=== PATIENT | male | born 1985 | race Caucasian/White ===

== ENCOUNTER 2020-09-14 21:29 | Inpatient (IN) | payer BC ==
[2020-09-14] MEDS ORDERED: MAGNESIUM CITRATE 300 ML BOTTLE PO PRN (23:56)
[2020-09-14] MEDS ORDERED: LOPERAMIDE HCL 2 MG CAPSULE PO PRN (23:56)
[2020-09-14] MEDS ORDERED: MAGNESIUM HYDROX 2400MG/30ML ORAL SUSPENSION 30 ML CUP PO PRN (23:56)
[2020-09-14] MEDS ORDERED: guaiFENesin 200 MG/10 ML 10 ML UNIT-DOSE CUPS PO PRN (23:56)
[2020-09-14] MEDS ORDERED: P-EPHED 60MG/TRIPROLIDI 2.5MG TABLET PO PRN (23:56)
[2020-09-14] MEDS ORDERED: MAG HYDROX/AL HYDROX/SIMETH 30 ML UNIT-DOSE CUP PO PRN (23:56)
[2020-09-14] MEDS ORDERED: ACETAMINOPHEN 325 MG TABLET (FP) PO PRN (23:56)
[2020-09-15] MEDS ORDERED: TUBERCULIN PPD 5 TU/0.1ML VIAL ID ONE (01:59)
[2020-09-15] MEDS: MELATONIN 5 MG TABLETS PO SCH ×2 (02:08→21:44)
[2020-09-15] MEDS ORDERED: GEODON 20 MG PO SCH (10:00)
[2020-09-15] MEDS: PRENATAL VITAMINS W/ FOLIC ACID TABLET (FP) PO SCH (10:07)
[2020-09-15] MEDS: hydrOXYzine PAMOATE 25 MG CAPSULE (FP) PO PRN (10:07)
[2020-09-15] MEDS: NICOTINE 14 MG/24 HOURS TOPICAL PATCH TD SCH (10:07)
[2020-09-15] MEDS: COLLOIDAL OATMEAL 1 BAR EACH TP PRN (10:08)
[2020-09-15 11:38] LABS: HEMATOCRIT 35.1 % (35.4-49); HEMOGLOBIN 11.6 GM/dL (11.7-16.9); MCH 27.9 pg (25.7-33.7); MCHC 33.1 g/dl (32.0-35.9); MEAN CELL VOLUME 84.5 fl (80-96); MEAN PLT VOLUME 7.8 fl (7.5-11.1); PLATELET COUNT 300 K/MM3 (134-434); RBC 4.16 M/mm3 (4.00-5.60); RDW 20.2 % (11.9-15.9); WHITE BLOOD COUNT 6.8 K/mm3 (4.0-10.0)
[2020-09-15 11:42] LABS: ALBUMIN 3.2 g/dl (3.4-5.0)
[2020-09-15 11:43] LABS: BLOOD UREA NITROGEN 10.9 mg/dL (7-18)
[2020-09-15 11:46] LABS: CREATININE 0.8 mg/dL (0.55-1.3)
[2020-09-15 11:47] LABS: BILIRUBIN,TOTAL 0.5 mg/dL (0.2-1); TOT PROT 7.5 g/dl (6.4-8.2)
[2020-09-15 11:52] VITALS: BMI 25.0
[2020-09-15 11:56] LABS: EPI CELLS 10 /uL (0-25.1); HYALINE CASTS 4 /uL (0-3.1); URINE APPEARANCE CLEAR; URINE BACTERIA 51 /uL (0-1359); URINE BILIRUBIN NEGATIVE (NEGATIVE); URINE COLOR YELLOW; URINE GLUCOSE (UA) NEGATIVE (NEGATIVE); URINE KETONE NEGATIVE (NEGATIVE); URINE LEUK ESTERASE NEGATIVE (NEGATIVE); URINE NITRITE NEGATIVE (NEGATIVE); URINE PROTEIN NEGATIVE (NEGATIVE); URINE RBC 253 /uL (0-23.9); URINE UROBILINOGEN 0.2 mg/dL (0.2-1.0); URINE WBC 23 /uL (0-25.8)
[2020-09-15] MEDS ORDERED: ESCITALOPRAM OXALATE 10 MG TABLET PO SCH (12:00)
[2020-09-15] MEDS: ESCITALOPRAM OXALATE 10 MG PO SCH (12:07)
[2020-09-15] MEDS ORDERED: PT OWN MED DRAWER 7, Y5N ONE (12:10)
[2020-09-15] MEDS ORDERED: TRIUMEQ PO SCH (13:30)
[2020-09-15] MEDS ORDERED: SODIUM CHLORIDE NASAL SPRAY 44 ML BOTTLE NS PRN (13:35)
[2020-09-15] MEDS: ABACAVIR/DOLUTEGRAVIR/LAMIVUDI (TRIUMEQ) TABLET -NF PO SCH (14:44)
[2020-09-15] MEDS: ZIPRASIDONE 20 MG PO SCH (21:42)
[2020-09-15] MEDS: THIAMINE HCL 100 MG TABLET (FP) PO SCH (21:44)
[2020-09-16] MEDS: ABACAVIR/DOLUTEGRAVIR/LAMIVUDI (TRIUMEQ) TABLET -NF PO SCH (07:45)
[2020-09-16] MEDS: ESCITALOPRAM OXALATE 10 MG PO SCH (10:37)
[2020-09-16] MEDS: FAMOTIDINE 20 MG TABLET PO SCH (10:37)
[2020-09-16] MEDS: ZIPRASIDONE 20 MG PO SCH (10:37)
[2020-09-16] MEDS: NICOTINE 14 MG/24 HOURS TOPICAL PATCH TD SCH (10:38)
[2020-09-16] MEDS: PRENATAL VITAMINS W/ FOLIC ACID TABLET (FP) PO SCH (10:38)
[2020-09-16] MEDS: ZIPRASIDONE 20 MG CAPSULE PO SCH (17:09)
[2020-09-16] MEDS: METHYLPHENIDATE HCL 5 MG TABLET PO SCH (17:09)
[2020-09-16] MEDS: NICOTINE POLACRILEX 2 MG GUM BC PRN ×2 (18:05→20:45)
[2020-09-16] MEDS: THIAMINE HCL 100 MG TABLET (FP) PO SCH (21:08)
[2020-09-16] MEDS: MELATONIN 5 MG TABLETS PO SCH (21:08)
[2020-09-17] MEDS: METHYLPHENIDATE HCL 5 MG TABLET PO SCH ×2 (08:17→16:43)
[2020-09-17] MEDS: ZIPRASIDONE 20 MG CAPSULE PO SCH ×2 (08:17→16:44)
[2020-09-17] MEDS: ABACAVIR/DOLUTEGRAVIR/LAMIVUDI (TRIUMEQ) TABLET -NF PO SCH (08:18)
[2020-09-17] MEDS: FAMOTIDINE 20 MG TABLET PO SCH (10:26)
[2020-09-17] MEDS: ESCITALOPRAM OXALATE 10 MG PO SCH (10:26)
[2020-09-17] MEDS: NICOTINE 14 MG/24 HOURS TOPICAL PATCH TD SCH (10:26)
[2020-09-17] MEDS: PRENATAL VITAMINS W/ FOLIC ACID TABLET (FP) PO SCH (10:27)
[2020-09-17] MEDS: NICOTINE POLACRILEX 4 MG GUM BUC PRN (14:14)
[2020-09-17] MEDS: THIAMINE HCL 100 MG TABLET (FP) PO SCH (21:07)
[2020-09-17] MEDS: MELATONIN 5 MG TABLETS PO SCH (21:07)
[2020-09-18] MEDS: NICOTINE 14 MG/24 HOURS TOPICAL PATCH TD SCH (09:04)
[2020-09-18] MEDS: ZIPRASIDONE 20 MG CAPSULE PO SCH ×2 (09:05→17:06)
[2020-09-18] MEDS: ESCITALOPRAM OXALATE 10 MG PO SCH (09:05)
[2020-09-18] MEDS: FAMOTIDINE 20 MG TABLET PO SCH (09:05)
[2020-09-18] MEDS: METHYLPHENIDATE HCL 5 MG TABLET PO SCH ×2 (09:05→17:06)
[2020-09-18] MEDS: ABACAVIR/DOLUTEGRAVIR/LAMIVUDI (TRIUMEQ) TABLET -NF PO SCH ×2 (09:06)
[2020-09-18] MEDS: PRENATAL VITAMINS W/ FOLIC ACID TABLET (FP) PO SCH (09:06)
[2020-09-18] MEDS: NICOTINE POLACRILEX 4 MG GUM BUC PRN ×2 (09:07→19:18)
[2020-09-18] MEDS: THIAMINE HCL 100 MG TABLET (FP) PO SCH (21:10)
[2020-09-18] MEDS: MELATONIN 5 MG TABLETS PO SCH (21:10)
[2020-09-19] MEDS: METHYLPHENIDATE HCL 5 MG TABLET PO SCH ×2 (08:17→17:45)
[2020-09-19] MEDS: ZIPRASIDONE 20 MG CAPSULE PO SCH ×2 (08:17→17:46)
[2020-09-19] MEDS: ABACAVIR/DOLUTEGRAVIR/LAMIVUDI (TRIUMEQ) TABLET -NF PO SCH (08:17)
[2020-09-19] MEDS: NICOTINE POLACRILEX 4 MG GUM BUC PRN ×4 (08:24→17:56)
[2020-09-19] MEDS: ESCITALOPRAM OXALATE 10 MG PO SCH (10:14)
[2020-09-19] MEDS: PRENATAL VITAMINS W/ FOLIC ACID TABLET (FP) PO SCH (10:14)
[2020-09-19] MEDS: FAMOTIDINE 20 MG TABLET PO SCH (10:14)
[2020-09-19] MEDS: NICOTINE 14 MG/24 HOURS TOPICAL PATCH TD SCH (10:14)
[2020-09-19] MEDS: MELATONIN 5 MG TABLETS PO SCH (21:39)
[2020-09-19] MEDS: THIAMINE HCL 100 MG TABLET (FP) PO SCH (21:40)
[2020-09-20] MEDS: METHYLPHENIDATE HCL 5 MG TABLET PO SCH ×2 (07:37→16:51)
[2020-09-20] MEDS: COLLOIDAL OATMEAL 1 BAR EACH TP PRN (07:57)
[2020-09-20] MEDS: ABACAVIR/DOLUTEGRAVIR/LAMIVUDI (TRIUMEQ) TABLET -NF PO SCH (07:58)
[2020-09-20] MEDS: ZIPRASIDONE 20 MG CAPSULE PO SCH ×2 (07:58→16:52)
[2020-09-20] MEDS: NICOTINE POLACRILEX 4 MG GUM BUC PRN ×3 (08:52→15:49)
[2020-09-20] MEDS: NICOTINE 14 MG/24 HOURS TOPICAL PATCH TD SCH (10:27)
[2020-09-20] MEDS: ESCITALOPRAM OXALATE 10 MG PO SCH (10:27)
[2020-09-20] MEDS: PRENATAL VITAMINS W/ FOLIC ACID TABLET (FP) PO SCH (10:27)
[2020-09-20] MEDS: FAMOTIDINE 20 MG TABLET PO SCH (10:28)
[2020-09-20] MEDS: IBUPROFEN 400 MG TABLET (FP) PO PRN (17:38)
[2020-09-20] MEDS: THIAMINE HCL 100 MG TABLET (FP) PO SCH (21:10)
[2020-09-20] MEDS: MINERAL OIL/PETROLAT/WATER TOPICAL CREAM 113 GM JAR TP SCH (21:10)
[2020-09-20] MEDS: MELATONIN 5 MG TABLETS PO SCH (21:10)
[2020-09-21] MEDS: IBUPROFEN 400 MG TABLET (FP) PO PRN (06:10)
[2020-09-21] MEDS: NICOTINE POLACRILEX 4 MG GUM BUC PRN ×5 (06:10→17:43)
[2020-09-21] MEDS: ABACAVIR/DOLUTEGRAVIR/LAMIVUDI (TRIUMEQ) TABLET -NF PO SCH (07:38)
[2020-09-21] MEDS: METHYLPHENIDATE HCL 5 MG TABLET PO SCH ×2 (07:38→17:43)
[2020-09-21] MEDS: ZIPRASIDONE 20 MG CAPSULE PO SCH ×2 (07:38→17:43)
[2020-09-21] MEDS: NICOTINE 14 MG/24 HOURS TOPICAL PATCH TD SCH (10:25)
[2020-09-21] MEDS: PRENATAL VITAMINS W/ FOLIC ACID TABLET (FP) PO SCH (10:25)
[2020-09-21] MEDS: ESCITALOPRAM OXALATE 10 MG PO SCH (10:26)
[2020-09-21] MEDS: FAMOTIDINE 20 MG TABLET PO SCH (10:26)
[2020-09-21] MEDS: MINERAL OIL/PETROLAT/WATER TOPICAL CREAM 113 GM JAR TP SCH ×2 (10:28→21:47)
[2020-09-21] MEDS: BENZOCAINE 28 GM HEMORRHOIDAL OINTMENT RC PRN ×2 (11:58→18:59)
[2020-09-21] MEDS: THIAMINE HCL 100 MG TABLET (FP) PO SCH (21:47)
[2020-09-21] MEDS: MELATONIN 5 MG TABLETS PO SCH (21:47)
[2020-09-22] MEDS: NICOTINE POLACRILEX 4 MG GUM BUC PRN ×4 (06:33→17:43)
[2020-09-22] MEDS: METHYLPHENIDATE HCL 5 MG TABLET PO SCH ×2 (07:05→17:42)
[2020-09-22] MEDS: COLLOIDAL OATMEAL 1 BAR EACH TP PRN (07:10)
[2020-09-22] MEDS: ABACAVIR/DOLUTEGRAVIR/LAMIVUDI (TRIUMEQ) TABLET -NF PO SCH (07:41)
[2020-09-22] MEDS: ZIPRASIDONE 20 MG CAPSULE PO SCH ×2 (07:41→17:42)
[2020-09-22] MEDS: PRENATAL VITAMINS W/ FOLIC ACID TABLET (FP) PO SCH (10:19)
[2020-09-22] MEDS: FAMOTIDINE 20 MG TABLET PO SCH (10:19)
[2020-09-22] MEDS: MINERAL OIL/PETROLAT/WATER TOPICAL CREAM 113 GM JAR TP SCH ×2 (10:19→21:05)
[2020-09-22] MEDS: ESCITALOPRAM OXALATE 10 MG PO SCH (10:20)
[2020-09-22] MEDS: NICOTINE 14 MG/24 HOURS TOPICAL PATCH TD SCH (10:20)
[2020-09-22] MEDS: BENZOCAINE 28 GM HEMORRHOIDAL OINTMENT RC PRN (20:54)
[2020-09-22] MEDS: MELATONIN 5 MG TABLETS PO SCH (21:05)
[2020-09-22] MEDS: THIAMINE HCL 100 MG TABLET (FP) PO SCH (21:05)
[2020-09-23] MEDS: NICOTINE POLACRILEX 4 MG GUM BUC PRN ×5 (06:41→21:35)
[2020-09-23] MEDS: METHYLPHENIDATE HCL 5 MG TABLET PO SCH ×2 (07:02→17:44)
[2020-09-23] MEDS: ABACAVIR/DOLUTEGRAVIR/LAMIVUDI (TRIUMEQ) TABLET -NF PO SCH (08:05)
[2020-09-23] MEDS: ZIPRASIDONE 20 MG CAPSULE PO SCH ×2 (08:05→17:44)
[2020-09-23] MEDS: IBUPROFEN 400 MG TABLET (FP) PO PRN (08:45)
[2020-09-23] MEDS: PRENATAL VITAMINS W/ FOLIC ACID TABLET (FP) PO SCH (10:15)
[2020-09-23] MEDS: ESCITALOPRAM OXALATE 10 MG PO SCH (10:15)
[2020-09-23] MEDS: MINERAL OIL/PETROLAT/WATER TOPICAL CREAM 113 GM JAR TP SCH ×2 (10:15→21:36)
[2020-09-23] MEDS: NICOTINE 14 MG/24 HOURS TOPICAL PATCH TD SCH (10:15)
[2020-09-23] MEDS: hydrOXYzine PAMOATE 25 MG CAPSULE (FP) PO PRN ×2 (10:15→21:35)
[2020-09-23] MEDS: FAMOTIDINE 20 MG TABLET PO SCH (10:16)
[2020-09-23] MEDS: THIAMINE HCL 100 MG TABLET (FP) PO SCH (21:34)
[2020-09-23] MEDS: MELATONIN 5 MG TABLETS PO SCH (21:34)
[2020-09-23] MEDS: BENZOCAINE 28 GM HEMORRHOIDAL OINTMENT RC PRN (21:35)
[2020-09-24] MEDS: NICOTINE POLACRILEX 4 MG GUM BUC PRN ×4 (06:46→18:04)
[2020-09-24] MEDS: METHYLPHENIDATE HCL 5 MG TABLET PO SCH ×2 (07:50→18:02)
[2020-09-24] MEDS: ABACAVIR/DOLUTEGRAVIR/LAMIVUDI (TRIUMEQ) TABLET -NF PO SCH (07:50)
[2020-09-24] MEDS: ZIPRASIDONE 20 MG CAPSULE PO SCH ×2 (07:50→18:03)
[2020-09-24] MEDS: NICOTINE 14 MG/24 HOURS TOPICAL PATCH TD SCH (10:44)
[2020-09-24] MEDS: PRENATAL VITAMINS W/ FOLIC ACID TABLET (FP) PO SCH (10:44)
[2020-09-24] MEDS: ESCITALOPRAM OXALATE 10 MG PO SCH (10:44)
[2020-09-24] MEDS: FAMOTIDINE 20 MG TABLET PO SCH (10:44)
[2020-09-24] MEDS: MINERAL OIL/PETROLAT/WATER TOPICAL CREAM 113 GM JAR TP SCH ×2 (10:46→21:10)
[2020-09-24] MEDS: BENZOCAINE 28 GM HEMORRHOIDAL OINTMENT RC PRN (18:02)
[2020-09-24] MEDS: hydrOXYzine PAMOATE 25 MG CAPSULE (FP) PO PRN (21:12)
[2020-09-24] MEDS: THIAMINE HCL 100 MG TABLET (FP) PO SCH (21:12)
[2020-09-24] MEDS: MELATONIN 5 MG TABLETS PO SCH (21:12)
[2020-09-25] MEDS: COLLOIDAL OATMEAL 1 BAR EACH TP PRN (07:28)
[2020-09-25] MEDS: METHYLPHENIDATE HCL 5 MG TABLET PO SCH ×2 (07:28→17:48)
[2020-09-25] MEDS: ZIPRASIDONE 20 MG CAPSULE PO SCH ×2 (08:18→17:49)
[2020-09-25] MEDS: BENZOCAINE 28 GM HEMORRHOIDAL OINTMENT RC PRN (08:19)
[2020-09-25] MEDS: ABACAVIR/DOLUTEGRAVIR/LAMIVUDI (TRIUMEQ) TABLET -NF PO SCH (08:20)
[2020-09-25] MEDS: ESCITALOPRAM OXALATE 10 MG PO SCH (10:19)
[2020-09-25] MEDS: PRENATAL VITAMINS W/ FOLIC ACID TABLET (FP) PO SCH (10:19)
[2020-09-25] MEDS: MINERAL OIL/PETROLAT/WATER TOPICAL CREAM 113 GM JAR TP SCH ×2 (10:20→21:38)
[2020-09-25] MEDS: NICOTINE POLACRILEX 4 MG GUM BUC PRN ×5 (10:21→21:38)
[2020-09-25] MEDS: NICOTINE 14 MG/24 HOURS TOPICAL PATCH TD SCH (10:21)
[2020-09-25] MEDS: FAMOTIDINE 20 MG TABLET PO SCH (10:59)
[2020-09-25] MEDS: THIAMINE HCL 100 MG TABLET (FP) PO SCH (21:37)
[2020-09-25] MEDS: hydrOXYzine PAMOATE 25 MG CAPSULE (FP) PO PRN (21:37)
[2020-09-25] MEDS: MELATONIN 5 MG TABLETS PO SCH (21:37)
[2020-09-26] MEDS: METHYLPHENIDATE HCL 5 MG TABLET PO SCH ×2 (08:26→17:51)
[2020-09-26] MEDS: NICOTINE POLACRILEX 4 MG GUM BUC PRN ×5 (08:27→21:10)
[2020-09-26] MEDS: ABACAVIR/DOLUTEGRAVIR/LAMIVUDI (TRIUMEQ) TABLET -NF PO SCH (08:28)
[2020-09-26] MEDS: ZIPRASIDONE 20 MG CAPSULE PO SCH ×2 (08:28→17:51)
[2020-09-26] MEDS: PRENATAL VITAMINS W/ FOLIC ACID TABLET (FP) PO SCH (10:31)
[2020-09-26] MEDS: NICOTINE 14 MG/24 HOURS TOPICAL PATCH TD SCH (10:32)
[2020-09-26] MEDS: MINERAL OIL/PETROLAT/WATER TOPICAL CREAM 113 GM JAR TP SCH ×2 (10:34→21:10)
[2020-09-26] MEDS: ESCITALOPRAM OXALATE 10 MG PO SCH (10:34)
[2020-09-26] MEDS: FAMOTIDINE 20 MG TABLET PO SCH (10:41)
[2020-09-26] MEDS: IBUPROFEN 400 MG TABLET (FP) PO PRN (17:51)
[2020-09-26] MEDS: MELATONIN 5 MG TABLETS PO SCH (21:08)
[2020-09-26] MEDS: hydrOXYzine PAMOATE 25 MG CAPSULE (FP) PO PRN (21:08)
[2020-09-26] MEDS: THIAMINE HCL 100 MG TABLET (FP) PO SCH (21:08)
[2020-09-27] MEDS: IBUPROFEN 400 MG TABLET (FP) PO PRN (06:33)
[2020-09-27] MEDS: NICOTINE POLACRILEX 4 MG GUM BUC PRN ×5 (06:37→21:19)
[2020-09-27] MEDS: METHYLPHENIDATE HCL 5 MG TABLET PO SCH ×2 (07:56→17:31)
[2020-09-27] MEDS: ABACAVIR/DOLUTEGRAVIR/LAMIVUDI (TRIUMEQ) TABLET -NF PO SCH (07:56)
[2020-09-27] MEDS: ZIPRASIDONE 20 MG CAPSULE PO SCH ×2 (07:56→17:31)
[2020-09-27] MEDS: PRENATAL VITAMINS W/ FOLIC ACID TABLET (FP) PO SCH (10:34)
[2020-09-27] MEDS: MINERAL OIL/PETROLAT/WATER TOPICAL CREAM 113 GM JAR TP SCH ×2 (10:35→21:19)
[2020-09-27] MEDS: NICOTINE 14 MG/24 HOURS TOPICAL PATCH TD SCH (10:35)
[2020-09-27] MEDS: ESCITALOPRAM OXALATE 10 MG PO SCH (10:35)
[2020-09-27] MEDS: FAMOTIDINE 20 MG TABLET PO SCH (10:35)
[2020-09-27] MEDS: THIAMINE HCL 100 MG TABLET (FP) PO SCH (21:18)
[2020-09-27] MEDS: MELATONIN 5 MG TABLETS PO SCH (21:18)
[2020-09-27] MEDS: hydrOXYzine PAMOATE 25 MG CAPSULE (FP) PO PRN (21:18)
[2020-09-28] MEDS ORDERED: PT OWN MED DRAWER 7, Y5N ONE (06:49)
[2020-09-28] MEDS: METHYLPHENIDATE HCL 5 MG TABLET PO SCH ×2 (07:53→17:27)
[2020-09-28] MEDS: ABACAVIR/DOLUTEGRAVIR/LAMIVUDI (TRIUMEQ) TABLET -NF PO SCH (07:53)
[2020-09-28] MEDS: ZIPRASIDONE 20 MG CAPSULE PO SCH ×2 (07:53→17:28)
[2020-09-28] MEDS: ESCITALOPRAM OXALATE 10 MG PO SCH (09:58)
[2020-09-28] MEDS: PRENATAL VITAMINS W/ FOLIC ACID TABLET (FP) PO SCH (09:58)
[2020-09-28] MEDS: FAMOTIDINE 20 MG TABLET PO SCH (09:58)
[2020-09-28] MEDS: MINERAL OIL/PETROLAT/WATER TOPICAL CREAM 113 GM JAR TP SCH ×2 (09:58→21:26)
[2020-09-28] MEDS: NICOTINE 14 MG/24 HOURS TOPICAL PATCH TD SCH (09:58)
[2020-09-28] MEDS: NICOTINE POLACRILEX 4 MG GUM BUC PRN ×5 (10:00→21:26)
[2020-09-28] MEDS: COLLOIDAL OATMEAL 1 BAR EACH TP PRN (16:39)
[2020-09-28] MEDS: IBUPROFEN 400 MG TABLET (FP) PO PRN (17:28)
[2020-09-28] MEDS: MELATONIN 5 MG TABLETS PO SCH (21:26)
[2020-09-28] MEDS: THIAMINE HCL 100 MG TABLET (FP) PO SCH (21:26)
[2020-09-28] MEDS: hydrOXYzine PAMOATE 25 MG CAPSULE (FP) PO PRN (21:26)
[2020-09-29] MEDS: NICOTINE POLACRILEX 4 MG GUM BUC PRN ×5 (06:16→20:16)
[2020-09-29] MEDS: IBUPROFEN 400 MG TABLET (FP) PO PRN ×3 (06:16→21:29)
[2020-09-29] MEDS: METHYLPHENIDATE HCL 5 MG TABLET PO SCH ×2 (07:59→17:37)
[2020-09-29] MEDS: ZIPRASIDONE 20 MG CAPSULE PO SCH ×2 (08:00→17:38)
[2020-09-29] MEDS: ABACAVIR/DOLUTEGRAVIR/LAMIVUDI (TRIUMEQ) TABLET -NF PO SCH (08:00)
[2020-09-29] MEDS: MINERAL OIL/PETROLAT/WATER TOPICAL CREAM 113 GM JAR TP SCH ×2 (10:20→21:59)
[2020-09-29] MEDS: NICOTINE 14 MG/24 HOURS TOPICAL PATCH TD SCH (10:20)
[2020-09-29] MEDS: PRENATAL VITAMINS W/ FOLIC ACID TABLET (FP) PO SCH (10:20)
[2020-09-29] MEDS: FAMOTIDINE 20 MG TABLET PO SCH (10:20)
[2020-09-29] MEDS: ESCITALOPRAM OXALATE 10 MG TABLET PO SCH (10:21)
[2020-09-29] MEDS: hydrOXYzine PAMOATE 25 MG CAPSULE (FP) PO PRN (21:28)
[2020-09-29] MEDS: MELATONIN 5 MG TABLETS PO SCH (21:28)
[2020-09-29] MEDS: THIAMINE HCL 100 MG TABLET (FP) PO SCH (21:28)
[2020-09-30] MEDS: OFLOXACIN 0.3% OTIC SOLUTION 5 ML BOTTLE AS SCH ×2 (00:24→10:33)
[2020-09-30] MEDS: IBUPROFEN 400 MG TABLET (FP) PO PRN ×3 (06:43→21:32)
[2020-09-30] MEDS: NICOTINE POLACRILEX 4 MG GUM BUC PRN ×6 (06:48→21:32)
[2020-09-30] MEDS: METHYLPHENIDATE HCL 5 MG TABLET PO SCH ×2 (08:01→18:13)
[2020-09-30] MEDS: ABACAVIR/DOLUTEGRAVIR/LAMIVUDI (TRIUMEQ) TABLET -NF PO SCH (08:02)
[2020-09-30] MEDS: ZIPRASIDONE 20 MG CAPSULE PO SCH ×2 (08:02→18:13)
[2020-09-30] MEDS: PRENATAL VITAMINS W/ FOLIC ACID TABLET (FP) PO SCH (10:06)
[2020-09-30] MEDS: ESCITALOPRAM OXALATE 10 MG TABLET PO SCH (10:07)
[2020-09-30] MEDS: FAMOTIDINE 20 MG TABLET PO SCH (10:07)
[2020-09-30] MEDS: MINERAL OIL/PETROLAT/WATER TOPICAL CREAM 113 GM JAR TP SCH ×2 (10:07→21:33)
[2020-09-30] MEDS: NICOTINE 14 MG/24 HOURS TOPICAL PATCH TD SCH (10:07)
[2020-09-30] MEDS: THIAMINE HCL 100 MG TABLET (FP) PO SCH (21:31)
[2020-09-30] MEDS: MELATONIN 5 MG TABLETS PO SCH (21:31)
[2020-09-30] MEDS: hydrOXYzine PAMOATE 25 MG CAPSULE (FP) PO PRN (21:31)
[2020-10-01] MEDS: IBUPROFEN 400 MG TABLET (FP) PO PRN ×3 (06:26→21:26)
[2020-10-01] MEDS: NICOTINE POLACRILEX 4 MG GUM BUC PRN ×2 (06:27→08:50)
[2020-10-01] MEDS: METHYLPHENIDATE HCL 5 MG TABLET PO SCH ×2 (07:53→17:58)
[2020-10-01] MEDS: ABACAVIR/DOLUTEGRAVIR/LAMIVUDI (TRIUMEQ) TABLET -NF PO SCH (07:54)
[2020-10-01] MEDS: ZIPRASIDONE 20 MG CAPSULE PO SCH ×2 (07:54→17:58)
[2020-10-01] MEDS: MINERAL OIL/PETROLAT/WATER TOPICAL CREAM 113 GM JAR TP SCH ×2 (10:09→21:27)
[2020-10-01] MEDS: OFLOXACIN 0.3% OTIC SOLUTION 5 ML BOTTLE AS SCH (10:09)
[2020-10-01] MEDS: PRENATAL VITAMINS W/ FOLIC ACID TABLET (FP) PO SCH (10:09)
[2020-10-01] MEDS: NICOTINE 14 MG/24 HOURS TOPICAL PATCH TD SCH (10:10)
[2020-10-01] MEDS: FAMOTIDINE 20 MG TABLET PO SCH (10:10)
[2020-10-01] MEDS: ESCITALOPRAM OXALATE 10 MG TABLET PO SCH (10:10)
[2020-10-01] MEDS: GUM BUC PRN ×4 (12:44→21:38)
[2020-10-01] MEDS: NICOTINE POLACRILEX 4 MG BUC PRN ×4 (12:44→21:38)
[2020-10-01] MEDS ORDERED: PT OWN MED DRAWER 7, Y5N ONE (12:46)
[2020-10-01] MEDS: MENTHOL/PHENOL 1 EACH UD MM PRN ×2 (13:02→21:25)
[2020-10-01] MEDS: THIAMINE HCL 100 MG TABLET (FP) PO SCH (21:24)
[2020-10-01] MEDS: MELATONIN 5 MG TABLETS PO SCH (21:24)
[2020-10-01] MEDS: hydrOXYzine PAMOATE 25 MG CAPSULE (FP) PO PRN (21:26)
[2020-10-02] MEDS: IBUPROFEN 400 MG TABLET (FP) PO PRN ×3 (06:02→21:12)
[2020-10-02] MEDS: GUM BUC PRN ×5 (06:03→21:12)
[2020-10-02] MEDS: NICOTINE POLACRILEX 4 MG BUC PRN ×5 (06:03→21:12)
[2020-10-02] MEDS: ABACAVIR/DOLUTEGRAVIR/LAMIVUDI (TRIUMEQ) TABLET -NF PO SCH (08:14)
[2020-10-02] MEDS: ZIPRASIDONE 20 MG CAPSULE PO SCH ×2 (08:14→17:37)
[2020-10-02] MEDS: METHYLPHENIDATE HCL 5 MG TABLET PO SCH ×2 (08:14→17:37)
[2020-10-02] MEDS: ESCITALOPRAM OXALATE 10 MG TABLET PO SCH (09:45)
[2020-10-02] MEDS: PRENATAL VITAMINS W/ FOLIC ACID TABLET (FP) PO SCH (09:45)
[2020-10-02] MEDS: FAMOTIDINE 20 MG TABLET PO SCH (09:45)
[2020-10-02] MEDS: OFLOXACIN 0.3% OTIC SOLUTION 5 ML BOTTLE AS SCH (09:46)
[2020-10-02] MEDS: NICOTINE 14 MG/24 HOURS TOPICAL PATCH TD SCH (09:46)
[2020-10-02] MEDS: MINERAL OIL/PETROLAT/WATER TOPICAL CREAM 113 GM JAR TP SCH ×2 (09:46→21:13)
[2020-10-02] MEDS: MENTHOL/PHENOL 1 EACH UD MM PRN ×2 (13:04→19:04)
[2020-10-02] MEDS: hydrOXYzine PAMOATE 25 MG CAPSULE (FP) PO PRN ×3 (13:46→22:03)
[2020-10-02] MEDS: THIAMINE HCL 100 MG TABLET (FP) PO SCH (21:11)
[2020-10-02] MEDS: MELATONIN 5 MG TABLETS PO SCH (21:11)
[2020-10-03] MEDS: GUM BUC PRN ×7 (05:58→21:08)
[2020-10-03] MEDS: NICOTINE POLACRILEX 4 MG BUC PRN ×7 (05:58→21:08)
[2020-10-03] MEDS: ZIPRASIDONE 20 MG CAPSULE PO SCH ×2 (08:20→17:42)
[2020-10-03] MEDS: METHYLPHENIDATE HCL 5 MG TABLET PO SCH ×2 (08:20→17:41)
[2020-10-03] MEDS: ABACAVIR/DOLUTEGRAVIR/LAMIVUDI (TRIUMEQ) TABLET -NF PO SCH (08:20)
[2020-10-03] MEDS ORDERED: PT OWN MED DRAWER 7, Y5N ONE (08:31)
[2020-10-03] MEDS: MENTHOL/PHENOL 1 EACH UD MM PRN ×3 (08:32→17:42)
[2020-10-03] MEDS: PRENATAL VITAMINS W/ FOLIC ACID TABLET (FP) PO SCH (09:47)
[2020-10-03] MEDS: NICOTINE 14 MG/24 HOURS TOPICAL PATCH TD SCH (09:47)
[2020-10-03] MEDS: FAMOTIDINE 20 MG TABLET PO SCH (09:47)
[2020-10-03] MEDS: ESCITALOPRAM OXALATE 10 MG TABLET PO SCH (09:47)
[2020-10-03] MEDS: MINERAL OIL/PETROLAT/WATER TOPICAL CREAM 113 GM JAR TP SCH ×2 (09:48→21:09)
[2020-10-03] MEDS: OFLOXACIN 0.3% OTIC SOLUTION 5 ML BOTTLE AS SCH (09:48)
[2020-10-03] MEDS: hydrOXYzine PAMOATE 25 MG CAPSULE (FP) PO PRN ×2 (10:57→21:08)
[2020-10-03] MEDS: THIAMINE HCL 100 MG TABLET (FP) PO SCH (21:08)
[2020-10-03] MEDS: MELATONIN 5 MG TABLETS PO SCH (21:08)
[2020-10-04] MEDS: NICOTINE POLACRILEX 4 MG BUC PRN ×4 (06:29→21:26)
[2020-10-04] MEDS: GUM BUC PRN ×4 (06:29→21:26)
[2020-10-04] MEDS: ZIPRASIDONE 20 MG CAPSULE PO SCH ×2 (08:06→18:03)
[2020-10-04] MEDS: METHYLPHENIDATE HCL 5 MG TABLET PO SCH (08:06)
[2020-10-04] MEDS: ABACAVIR/DOLUTEGRAVIR/LAMIVUDI (TRIUMEQ) TABLET -NF PO SCH (08:06)
[2020-10-04] MEDS: PRENATAL VITAMINS W/ FOLIC ACID TABLET (FP) PO SCH (10:15)
[2020-10-04] MEDS: ESCITALOPRAM OXALATE 10 MG TABLET PO SCH (10:17)
[2020-10-04] MEDS: NICOTINE 14 MG/24 HOURS TOPICAL PATCH TD SCH (10:17)
[2020-10-04] MEDS: FAMOTIDINE 20 MG TABLET PO SCH (10:17)
[2020-10-04] MEDS: MINERAL OIL/PETROLAT/WATER TOPICAL CREAM 113 GM JAR TP SCH ×2 (10:18→21:46)
[2020-10-04] MEDS: MENTHOL/PHENOL 1 EACH UD MM PRN ×2 (10:18→18:04)
[2020-10-04] MEDS: OFLOXACIN 0.3% OTIC SOLUTION 5 ML BOTTLE AS SCH (10:23)
[2020-10-04] MEDS: hydrOXYzine PAMOATE 25 MG CAPSULE (FP) PO PRN ×3 (12:00→21:25)
[2020-10-04] MEDS: COLLOIDAL OATMEAL 1 BAR EACH TP PRN (16:43)
[2020-10-04] MEDS ORDERED: METHYLPHENIDATE HCL 5 MG TABLET PO SCH (17:00)
[2020-10-04] MEDS ORDERED: PT OWN MED DRAWER 7, Y5N ONE (18:02)
[2020-10-04] MEDS: ALBUTEROL SO4 HFA INHALER IH PRN (18:06)
[2020-10-04] MEDS: THIAMINE HCL 100 MG TABLET (FP) PO SCH (21:25)
[2020-10-04] MEDS: MELATONIN 5 MG TABLETS PO SCH (21:25)
[2020-10-05] MEDS: GUM BUC PRN ×5 (06:28→19:56)
[2020-10-05] MEDS: NICOTINE POLACRILEX 4 MG BUC PRN ×5 (06:28→19:56)
[2020-10-05] MEDS: ZIPRASIDONE 20 MG CAPSULE PO SCH ×2 (07:36→17:33)
[2020-10-05] MEDS: ABACAVIR/DOLUTEGRAVIR/LAMIVUDI (TRIUMEQ) TABLET -NF PO SCH (07:36)
[2020-10-05] MEDS: METHYLPHENIDATE HCL 5 MG TABLET PO SCH ×2 (08:31→17:33)
[2020-10-05] MEDS ORDERED: PT OWN MED DRAWER 7, Y5N ONE ×2 (08:56→09:56)
[2020-10-05] MEDS: hydrOXYzine PAMOATE 25 MG CAPSULE (FP) PO PRN (09:54)
[2020-10-05] MEDS: NICOTINE 14 MG/24 HOURS TOPICAL PATCH TD SCH (09:54)
[2020-10-05] MEDS: ESCITALOPRAM OXALATE 10 MG TABLET PO SCH (09:54)
[2020-10-05] MEDS: OFLOXACIN 0.3% OTIC SOLUTION 5 ML BOTTLE AS SCH (09:56)
[2020-10-05] MEDS: FAMOTIDINE 20 MG TABLET PO SCH (09:56)
[2020-10-05] MEDS: PRENATAL VITAMINS W/ FOLIC ACID TABLET (FP) PO SCH (09:56)
[2020-10-05] MEDS: MINERAL OIL/PETROLAT/WATER TOPICAL CREAM 113 GM JAR TP SCH ×2 (09:56→21:11)
[2020-10-05] MEDS: ALBUTEROL SO4 HFA INHALER IH PRN (09:58)
[2020-10-05] MEDS: MENTHOL/PHENOL 1 EACH UD MM PRN ×3 (10:00→21:12)
[2020-10-05] MEDS ORDERED: METHYLPHENIDATE HCL 5 MG TABLET PO SCH (10:00)
[2020-10-05] MEDS: hydrOXYzine PAMOATE 50 MG CAPSULE (FP) PO PRN ×2 (13:58→21:11)
[2020-10-05] MEDS: MELATONIN 5 MG TABLETS PO SCH (21:10)
[2020-10-05] MEDS: THIAMINE HCL 100 MG TABLET (FP) PO SCH (21:10)
[2020-10-06] MEDS: GUM BUC PRN ×6 (07:03→21:22)
[2020-10-06] MEDS: NICOTINE POLACRILEX 4 MG BUC PRN ×6 (07:03→21:22)
[2020-10-06] MEDS: ABACAVIR/DOLUTEGRAVIR/LAMIVUDI (TRIUMEQ) TABLET -NF PO SCH (07:56)
[2020-10-06] MEDS: METHYLPHENIDATE HCL 5 MG TABLET PO SCH ×2 (07:56→18:07)
[2020-10-06] MEDS: ZIPRASIDONE 20 MG CAPSULE PO SCH ×2 (07:56→18:07)
[2020-10-06] MEDS: PRENATAL VITAMINS W/ FOLIC ACID TABLET (FP) PO SCH (09:37)
[2020-10-06] MEDS: FAMOTIDINE 20 MG TABLET PO SCH (09:39)
[2020-10-06] MEDS: NICOTINE 14 MG/24 HOURS TOPICAL PATCH TD SCH (09:39)
[2020-10-06] MEDS: MINERAL OIL/PETROLAT/WATER TOPICAL CREAM 113 GM JAR TP SCH ×2 (09:39→21:23)
[2020-10-06] MEDS: hydrOXYzine PAMOATE 50 MG CAPSULE (FP) PO PRN ×3 (09:39→21:21)
[2020-10-06] MEDS: OFLOXACIN 0.3% OTIC SOLUTION 5 ML BOTTLE AS SCH (09:39)
[2020-10-06] MEDS: ESCITALOPRAM OXALATE 10 MG TABLET PO SCH (09:39)
[2020-10-06] MEDS: ALBUTEROL SO4 HFA INHALER IH PRN (09:40)
[2020-10-06] MEDS: IBUPROFEN 400 MG TABLET (FP) PO PRN (14:55)
[2020-10-06] MEDS: THIAMINE HCL 100 MG TABLET (FP) PO SCH (21:21)
[2020-10-06] MEDS: MELATONIN 5 MG TABLETS PO SCH (21:21)
[2020-10-07] MEDS: NICOTINE POLACRILEX 4 MG BUC PRN ×5 (06:06→18:14)
[2020-10-07] MEDS: GUM BUC PRN ×5 (06:06→18:14)
[2020-10-07] MEDS: ZIPRASIDONE 20 MG CAPSULE PO SCH ×2 (07:54→18:13)
[2020-10-07] MEDS: ABACAVIR/DOLUTEGRAVIR/LAMIVUDI (TRIUMEQ) TABLET -NF PO SCH (07:54)
[2020-10-07] MEDS: METHYLPHENIDATE HCL 5 MG TABLET PO SCH ×2 (07:54→18:13)
[2020-10-07] MEDS: PRENATAL VITAMINS W/ FOLIC ACID TABLET (FP) PO SCH (09:42)
[2020-10-07] MEDS: MINERAL OIL/PETROLAT/WATER TOPICAL CREAM 113 GM JAR TP SCH ×2 (09:42→21:15)
[2020-10-07] MEDS: OFLOXACIN 0.3% OTIC SOLUTION 5 ML BOTTLE AS SCH (09:42)
[2020-10-07] MEDS: ESCITALOPRAM OXALATE 10 MG TABLET PO SCH (09:43)
[2020-10-07] MEDS: hydrOXYzine PAMOATE 50 MG CAPSULE (FP) PO PRN ×3 (09:43→21:14)
[2020-10-07] MEDS: FAMOTIDINE 20 MG TABLET PO SCH (09:43)
[2020-10-07] MEDS: NICOTINE 14 MG/24 HOURS TOPICAL PATCH TD SCH (09:43)
[2020-10-07] MEDS: MENTHOL/PHENOL 1 EACH UD MM PRN ×3 (09:45→21:15)
[2020-10-07] MEDS: IBUPROFEN 400 MG TABLET (FP) PO PRN (16:29)
[2020-10-07] MEDS: THIAMINE HCL 100 MG TABLET (FP) PO SCH (21:13)
[2020-10-07] MEDS: MELATONIN 5 MG TABLETS PO SCH (21:13)
[2020-10-08] MEDS: NICOTINE POLACRILEX 4 MG BUC PRN ×7 (03:52→20:11)
[2020-10-08] MEDS: GUM BUC PRN ×7 (03:52→20:11)
[2020-10-08] MEDS: ZIPRASIDONE 20 MG CAPSULE PO SCH ×2 (08:24→17:33)
[2020-10-08] MEDS: ABACAVIR/DOLUTEGRAVIR/LAMIVUDI (TRIUMEQ) TABLET -NF PO SCH (08:24)
[2020-10-08] MEDS: METHYLPHENIDATE HCL 5 MG TABLET PO SCH ×2 (08:24→17:32)
[2020-10-08] MEDS: hydrOXYzine PAMOATE 50 MG CAPSULE (FP) PO PRN ×4 (08:25→20:10)
[2020-10-08] MEDS: PRENATAL VITAMINS W/ FOLIC ACID TABLET (FP) PO SCH (09:45)
[2020-10-08] MEDS: MINERAL OIL/PETROLAT/WATER TOPICAL CREAM 113 GM JAR TP SCH ×2 (09:46→21:25)
[2020-10-08] MEDS: FAMOTIDINE 20 MG TABLET PO SCH (09:46)
[2020-10-08] MEDS: ESCITALOPRAM OXALATE 10 MG TABLET PO SCH (09:46)
[2020-10-08] MEDS: NICOTINE 14 MG/24 HOURS TOPICAL PATCH TD SCH (09:46)
[2020-10-08] MEDS: IBUPROFEN 400 MG TABLET (FP) PO PRN (09:48)
[2020-10-08] MEDS: MENTHOL/PHENOL 1 EACH UD MM PRN ×2 (09:50→15:05)
[2020-10-08] MEDS: MELATONIN 5 MG TABLETS PO SCH (21:25)
[2020-10-08] MEDS: THIAMINE HCL 100 MG TABLET (FP) PO SCH (21:25)
[2020-10-09] MEDS: hydrOXYzine PAMOATE 50 MG CAPSULE (FP) PO PRN ×4 (03:55→21:35)
[2020-10-09] MEDS: GUM BUC PRN ×7 (03:56→21:35)
[2020-10-09] MEDS: NICOTINE POLACRILEX 4 MG BUC PRN ×7 (03:56→21:35)
[2020-10-09] MEDS ORDERED: PT OWN MED DRAWER 7, Y5N ONE ×2 (08:58→09:03)
[2020-10-09] MEDS: METHYLPHENIDATE HCL 5 MG TABLET PO SCH ×2 (08:59→18:00)
[2020-10-09] MEDS: ABACAVIR/DOLUTEGRAVIR/LAMIVUDI (TRIUMEQ) TABLET -NF PO SCH (09:00)
[2020-10-09] MEDS: ZIPRASIDONE 20 MG CAPSULE PO SCH ×2 (09:01→18:00)
[2020-10-09] MEDS: PRENATAL VITAMINS W/ FOLIC ACID TABLET (FP) PO SCH (09:02)
[2020-10-09] MEDS: MINERAL OIL/PETROLAT/WATER TOPICAL CREAM 113 GM JAR TP SCH ×2 (09:02→21:35)
[2020-10-09] MEDS: NICOTINE 14 MG/24 HOURS TOPICAL PATCH TD SCH (09:02)
[2020-10-09] MEDS: FAMOTIDINE 20 MG TABLET PO SCH (09:02)
[2020-10-09] MEDS: ESCITALOPRAM OXALATE 10 MG TABLET PO SCH (09:02)
[2020-10-09] MEDS: MENTHOL/PHENOL 1 EACH UD MM PRN ×2 (09:05→14:05)
[2020-10-09] MEDS: THIAMINE HCL 100 MG TABLET (FP) PO SCH (21:35)
[2020-10-09] MEDS: MELATONIN 5 MG TABLETS PO SCH (21:35)
[2020-10-10] MEDS: GUM BUC PRN ×7 (06:00→20:11)
[2020-10-10] MEDS: NICOTINE POLACRILEX 4 MG BUC PRN ×7 (06:00→20:11)
[2020-10-10] MEDS: hydrOXYzine PAMOATE 50 MG CAPSULE (FP) PO PRN ×3 (08:28→20:14)
[2020-10-10] MEDS: ABACAVIR/DOLUTEGRAVIR/LAMIVUDI (TRIUMEQ) TABLET -NF PO SCH (08:28)
[2020-10-10] MEDS: METHYLPHENIDATE HCL 5 MG TABLET PO SCH ×2 (08:28→17:39)
[2020-10-10] MEDS: ZIPRASIDONE 20 MG CAPSULE PO SCH ×2 (08:29→17:40)
[2020-10-10] MEDS: MENTHOL/PHENOL 1 EACH UD MM PRN (08:31)
[2020-10-10] MEDS: FAMOTIDINE 20 MG TABLET PO SCH (09:37)
[2020-10-10] MEDS: ESCITALOPRAM OXALATE 10 MG TABLET PO SCH (09:37)
[2020-10-10] MEDS: PRENATAL VITAMINS W/ FOLIC ACID TABLET (FP) PO SCH (09:37)
[2020-10-10] MEDS: MINERAL OIL/PETROLAT/WATER TOPICAL CREAM 113 GM JAR TP SCH ×2 (09:37→22:18)
[2020-10-10] MEDS: NICOTINE 14 MG/24 HOURS TOPICAL PATCH TD SCH (09:37)
[2020-10-10] MEDS: ALBUTEROL SO4 HFA INHALER IH PRN (10:33)
[2020-10-10] MEDS: COLLOIDAL OATMEAL 1 BAR EACH TP PRN (13:40)
[2020-10-10] MEDS: THIAMINE HCL 100 MG TABLET (FP) PO SCH (22:18)
[2020-10-10] MEDS: MELATONIN 5 MG TABLETS PO SCH (22:18)
[2020-10-11] MEDS: NICOTINE POLACRILEX 4 MG BUC PRN ×5 (06:50→21:21)
[2020-10-11] MEDS: GUM BUC PRN ×5 (06:50→21:21)
[2020-10-11] MEDS: METHYLPHENIDATE HCL 5 MG TABLET PO SCH ×2 (08:01→18:00)
[2020-10-11] MEDS: ZIPRASIDONE 20 MG CAPSULE PO SCH ×2 (08:01→18:00)
[2020-10-11] MEDS: ABACAVIR/DOLUTEGRAVIR/LAMIVUDI (TRIUMEQ) TABLET -NF PO SCH (08:01)
[2020-10-11] MEDS: hydrOXYzine PAMOATE 50 MG CAPSULE (FP) PO PRN ×2 (08:01→21:21)
[2020-10-11] MEDS: FAMOTIDINE 20 MG TABLET PO SCH (10:08)
[2020-10-11] MEDS: PRENATAL VITAMINS W/ FOLIC ACID TABLET (FP) PO SCH (10:09)
[2020-10-11] MEDS: ESCITALOPRAM OXALATE 10 MG TABLET PO SCH (10:09)
[2020-10-11] MEDS: NICOTINE 14 MG/24 HOURS TOPICAL PATCH TD SCH (10:36)
[2020-10-11] MEDS: MINERAL OIL/PETROLAT/WATER TOPICAL CREAM 113 GM JAR TP SCH ×2 (10:36→21:39)
[2020-10-11] MEDS ORDERED: PT OWN MED DRAWER 7, Y5N ONE (17:57)
[2020-10-11] MEDS: MELATONIN 5 MG TABLETS PO SCH (21:20)
[2020-10-11] MEDS: THIAMINE HCL 100 MG TABLET (FP) PO SCH (21:20)
[2020-10-12] MEDS: GUM BUC PRN ×6 (06:03→20:04)
[2020-10-12] MEDS: NICOTINE POLACRILEX 4 MG BUC PRN ×6 (06:03→20:04)
[2020-10-12] MEDS: hydrOXYzine PAMOATE 50 MG CAPSULE (FP) PO PRN ×2 (08:11→19:55)
[2020-10-12] MEDS: ZIPRASIDONE 20 MG CAPSULE PO SCH ×2 (08:12→17:25)
[2020-10-12] MEDS ORDERED: PT OWN MED DRAWER 7, Y5N ONE ×3 (08:12→17:22)
[2020-10-12] MEDS: METHYLPHENIDATE HCL 5 MG TABLET PO SCH ×2 (08:13→17:25)
[2020-10-12] MEDS: ABACAVIR/DOLUTEGRAVIR/LAMIVUDI (TRIUMEQ) TABLET -NF PO SCH (08:13)
[2020-10-12] MEDS: IBUPROFEN 400 MG TABLET (FP) PO PRN (08:14)
[2020-10-12] MEDS: PRENATAL VITAMINS W/ FOLIC ACID TABLET (FP) PO SCH (09:46)
[2020-10-12] MEDS: MINERAL OIL/PETROLAT/WATER TOPICAL CREAM 113 GM JAR TP SCH ×2 (09:46→21:29)
[2020-10-12] MEDS: NICOTINE 14 MG/24 HOURS TOPICAL PATCH TD SCH (09:46)
[2020-10-12] MEDS: FAMOTIDINE 20 MG TABLET PO SCH (09:46)
[2020-10-12] MEDS: ESCITALOPRAM OXALATE 10 MG TABLET PO SCH (09:47)
[2020-10-12] MEDS: MELATONIN 5 MG TABLETS PO SCH (21:29)
[2020-10-12] MEDS: THIAMINE HCL 100 MG TABLET (FP) PO SCH (21:29)
[2020-10-13] MEDS: GUM BUC PRN ×2 (03:39→06:14)
[2020-10-13] MEDS: NICOTINE POLACRILEX 4 MG BUC PRN ×2 (03:39→06:14)
[2020-10-13 07:29] VITALS: BP 104/62; PULSE 78; TEMP 97.2
[2020-10-13] MEDS ORDERED: PT OWN MED DRAWER 7, Y5N ONE ×2 (08:02→08:16)
[2020-10-13] MEDS: ZIPRASIDONE 20 MG CAPSULE PO SCH (08:03)
[2020-10-13] MEDS: METHYLPHENIDATE HCL 5 MG TABLET PO SCH (08:03)
[2020-10-13] MEDS: ABACAVIR/DOLUTEGRAVIR/LAMIVUDI (TRIUMEQ) TABLET -NF PO SCH (08:03)
[2020-10-13] MEDS: hydrOXYzine PAMOATE 50 MG CAPSULE (FP) PO PRN (09:43)
[2020-10-13] MEDS: ESCITALOPRAM OXALATE 10 MG TABLET PO SCH (09:43)
[2020-10-13] MEDS: FAMOTIDINE 20 MG TABLET PO SCH (09:43)
[2020-10-13] MEDS: PRENATAL VITAMINS W/ FOLIC ACID TABLET (FP) PO SCH (09:43)
== END 2020-10-13 09:50 | disposition home or self-care (01) | DRG 772 ==
LOC: YASAS 21:29 → Y3W 09-15 01:08
PROVIDERS: ADMIT Allergy & Immunology; ATTEND Allergy & Immunology
PROC: HZ42ZZZ Group Counseling for Substance Abuse Treatment, Cognitive-Behavioral (ICD-10-PCS; principal; 2020-09-15)
DX: F15.20 Other stimulant dependence, uncomplicated (principal); F17.210 Nicotine dependence, cigarettes, uncomplicated; F19.282 Other psychoactive substance dependence with psychoactive substance-induced sleep disorder; F19.24 Other psychoactive substance dependence with psychoactive substance-induced mood disorder; F41.1 Generalized anxiety disorder; F32.9 Major depressive disorder, single episode, unspecified; F90.9 Attention-deficit hyperactivity disorder, unspecified type; Z21 Asymptomatic human immunodeficiency virus [HIV] infection status; H60.92 Unspecified otitis externa, left ear; M79.641 Pain in right hand; W22.09XA Striking against other stationary object, initial encounter; Y93.89 Activity, other specified; Y99.8 Other external cause status; Z91.410 Personal history of adult physical and sexual abuse; Z88.1 Allergy status to other antibiotic agents; Z87.09 Personal history of other diseases of the respiratory system; Z87.442 Personal history of urinary calculi; Y92.238 Other place in hospital as the place of occurrence of the external cause
CPT/HCPCS: 36415; 73130-TC-RT-FY; 80053; 81003; 85027; 86593; 86780; 93005; 93010; C9803; U0003

== ENCOUNTER 2020-10-20 14:06 | Emergency (ER) | payer BC ==
[2020-10-20 14:24] VITALS: BMI 25.0
[2020-10-20] MEDS ORDERED: ABACAVIR/DOLUTEGRAVIR/LAMIVUDI (TRIUMEQ) TABLET -NF PO ONE (16:50)
[2020-10-20] MEDS ORDERED: METHYLPHENIDATE HCL 5 MG TABLET PO ONE (16:51)
[2020-10-20] MEDS ORDERED: ZIPRASIDONE 20 MG CAPSULE PO ONE (16:52)
[2020-10-20] MEDS ORDERED: ESCITALOPRAM OXALATE 10 MG TABLET PO ONE (16:52)
[2020-10-20] MEDS ORDERED: ESCITALOPRAM OXALATE 10 MG TABLET ONE (17:13)
[2020-10-20 17:57] LABS: BASO % 0.5 % (0-2.0); EOS % 2.1 % (0-4.5); HEMATOCRIT 38.3 % (35.4-49); HEMOGLOBIN 12.5 GM/dL (11.7-16.9); LYMPH % 37.4 % (8-40); MCH 28.9 pg (25.7-33.7); MCHC 32.6 g/dl (32.0-35.9); MEAN CELL VOLUME 88.5 fl (80-96); MEAN PLT VOLUME 7.9 fl (7.5-11.1); MONO % 10.8 % (3.8-10.2); NEUT % 49.2 % (42.8-82.8); PLATELET COUNT 332 K/MM3 (134-434); RBC 4.32 M/mm3 (4.00-5.60); RDW 18.2 % (11.9-15.9)
[2020-10-20 18:03] LABS: INR 1.06 (0.83-1.09); PROTHROMBIN TIME (PATIENT) 12.8 SEC (9.7-13.0)
[2020-10-20 18:06] LABS: ACTIVATED PTT 26.4 SECONDS (25.2-36.5)
[2020-10-20 18:17] LABS: CALCIUM 9.8 mg/dL (8.5-10.1)
[2020-10-20 18:18] LABS: ALBUMIN 3.6 g/dl (3.4-5.0); BLOOD UREA NITROGEN 10.8 mg/dL (7-18); MAGNESIUM 2.6 mg/dL (1.8-2.4)
[2020-10-20 18:21] LABS: CREATININE 0.8 mg/dL (0.55-1.3)
[2020-10-20 18:22] LABS: BILIRUBIN,TOTAL 0.3 mg/dL (0.2-1); TOT PROT 8.3 g/dl (6.4-8.2)
[2020-10-21 07:07] LABS: URINE BARBITURATES NEGATIVE ng/ml (CUTOFF=200)
[2020-10-21 07:08] LABS: COCAINE, UR NEGATIVE ng/ml (CUTOFF=300); METHADONE, UR NEGATIVE ng/ml (CUTOFF=300); OPIATES, URI NEGATIVE ng/ml (CUTOFF=300); PHENCYCLIDINE,URINE NEGATIVE ng/ml (CUTOFF=25)
[2020-10-21 07:12] LABS: URINE AMPHETAMINES POSITIVE ng/ml (CUTOFF=500); URINE BENZODIAZEPINES NEGATIVE ng/ml (CUTOFF=200)
[2020-10-21 08:07] LABS: EPI CELLS 31 /uL (0-25.1); HYALINE CASTS 4 /uL (0-3.1); PH,URINE 6.5 (5.0-8.0); URINE APPEARANCE CLOUDY; URINE BACTERIA 279 /uL (0-1359); URINE BILIRUBIN NEGATIVE (NEGATIVE); URINE COLOR YELLOW; URINE GLUCOSE (UA) NEGATIVE (NEGATIVE); URINE KETONE TRACE (NEGATIVE); URINE LEUK ESTERASE NEGATIVE (NEGATIVE); URINE NITRITE NEGATIVE (NEGATIVE); URINE PROTEIN 2+ (NEGATIVE); URINE RBC 1463 /uL (0-23.9); URINE UROBILINOGEN 0.2 mg/dL (0.2-1.0); URINE WBC 40 /uL (0-25.8)
[2020-10-21] MEDS ORDERED: METHYLPHENIDATE HCL 5 MG TABLET PO ONE (19:17)
[2020-10-21] MEDS ORDERED: ESCITALOPRAM OXALATE 10 MG TABLET PO ONE (19:18)
[2020-10-21] MEDS ORDERED: ZIPRASIDONE 20 MG CAPSULE PO ONE (19:18)
[2020-10-21] MEDS: ABACAVIR/DOLUTEGRAVIR/LAMIVUDI (TRIUMEQ) TABLET -NF PO SCH (20:18)
[2020-10-22] MEDS ORDERED: LORazepam 2 MG/ML SDV VIAL IM ONE (14:53)
[2020-10-22] MEDS ORDERED: HALOPERIDOL LACTATE 5 MG/ML IM ONE (14:53)
[2020-10-22] MEDS ORDERED: HALOPERIDOL LACTATE 5 MG/ML ONE (14:56)
[2020-10-22] MEDS ORDERED: LORazepam 2 MG/ML SDV VIAL ONE (14:57)
[2020-10-22] MEDS: ABACAVIR/DOLUTEGRAVIR/LAMIVUDI (TRIUMEQ) TABLET -NF PO SCH (15:35)
[2020-10-22 16:59] VITALS: BP 149/83; PULSE 104; TEMP 98.6
== END 2020-10-22 15:45 | disposition home or self-care (01) ==
LOC: JER 14:06
DX: F19.20 Other psychoactive substance dependence, uncomplicated (principal); B20 Human immunodeficiency virus [HIV] disease; R44.3 Hallucinations, unspecified
CPT/HCPCS: 36415; 80053; 80307; 81003; 83735; 84443; 85025; 85610; 85730; 93005; 93010; 99284-25; C9803; U0003; U0005